=== PATIENT | female | born 1970 | race Caucasian/White ===

== ENCOUNTER → 2023-11-29 14:14 | Outpatient (REF) | payer OTHER, SELFPAY | LOC: HWWDC 14:14 | PROVIDERS: ATTENDING PHYSICIAN Internal Medicine | DX: Z12.31 Encounter for screening mammogram for malignant neoplasm of breast (principal) | CPT/HCPCS: 77063; 77067 ==

== ENCOUNTER → 2024-02-22 08:17 | Outpatient (REF) | payer OTHER, SELFPAY | LOC: HWRAD 08:17 | PROVIDERS: ATTENDING PHYSICIAN Internal Medicine | DX: R17 Unspecified jaundice (principal) | CPT/HCPCS: 76700 ==

== ENCOUNTER → 2024-07-08 06:28 | Day surgery (SDC) | payer OTHER, SELFPAY | LOC: GI 06:28 | PROVIDERS: ATTENDING PHYSICIAN Internal Medicine Gastroenterology | DX: Z12.11 Encounter for screening for malignant neoplasm of colon (principal); Z80.0 Family history of malignant neoplasm of digestive organs; K64.0 First degree hemorrhoids; K57.30 Diverticulosis of large intestine without perforation or abscess without bleeding; D12.2 Benign neoplasm of ascending colon | CPT/HCPCS: 45385; 88305 ==

== ENCOUNTER 2024-08-27 02:02 | Emergency (ER) | payer OTHER, SELFPAY ==
[2024-08-27 02:07] VITALS: BP 128/80
--- NOTE | 2024-08-27 03:18 | ED.GENMED ---
History of Present Illness
<JAVI Robertson - Last Filed: 08/27/24 05:08>
General
Chief Complaint: Head Injury
Source: patient
Exam Limitations: none
Time Seen by Provider: 08/27/24 02:59
Nursing documentation reviewed up to this point in time: agreed with
History of Present Illness
History of Present Illness:
Patient is a 54yo F w/ no PMH who presents to the ED w/ complaint of head injury. She reports a bump on crown of head that she noticed about 3 weeks ago. Denies any injury could have caused bump. Also report chest pain and SOB w/ any exertion x3wks.
Sxs are relived w/ rest. Also reports on/off pupil dilation and blurry vision x3wks. Pt states vision is fine right now. Reports hitting head in shower 3 days ago. States she was very sore from going to gym and legs gave out. Hit R side base of
head. Denies dizziness and LOC. States she developed a NICHOLSON the next day and nausea today. Reports pain/pressure in crown of head when laying back that prevents her from falling asleep. States crown of head is tender and her face is swelling. Also
reports on/off tinnitus and vertigo but unclear when started.
Review of Systems
<JAVI Robertson - Last Filed: 08/27/24 05:08>
Review of Systems
Constitutional: Denies fever, fatigue or chills
EENT: Denies sore throat or runny nose
Respiratory: Denies cough or trouble breathing
Cardiac: Denies chest pain or palpitations
ABD/GI: Denies abdominal pain, nausea, vomiting, diarrhea or constipated
: Denies dysuria
Musculoskeletal: Denies joint pain, muscle pain or neck pain
Neurological: Reports headache; Denies dizzy, weakness or numbness
Phy Exam
<JAVI Robertson - Last Filed: 08/27/24 05:08>
General Physical Exam
General Presentation: no apparent distress
General age: appears older than age
General Skin: warm and dry
General Habitus: normal
General Mental: alert
ENT Exam
ENT Exam: EOMI, neck supple and normocephalic
Eye Exam
Eye Exam: PERRL and EOMI (pain w/ far L, far R, and up )
Cardiovascular Exam
Cardiovascular Exam: regular rate/rhythm, no edema, no gallop and no murmur
Pulmonary Exam
Pulmonary Exam: lungs clear, no respiratory distress, no rales, no crackles, no rhonchi and no wheezing
Neurological Exam
Neurological Exam: alert, oriented x3, no motor deficits, no sensory deficits and speech normal
Course
<JAVI Robertson - Last Filed: 08/27/24 05:08>
Orders/Labs/Results
Orders:
Orders
08/27/24 03:25
CT Head W/o Iv Contrast Urgent
Comment:
Reason For Exam: head injury, headache
08/27/24 03:31
Electrocardiogram (*1) Urgent
Reason for Study: Shortness of Breath
EKG- Treatment ONCE
Vital Signs
Initial and Last Documented VS:
Initial Vital Signs
Temp Pulse Resp BP Pulse Ox
98.1 F 66 18 128/80 100
08/27/24 02:07 08/27/24 02:07 08/27/24 02:07 08/27/24 02:07 08/27/24 02:07
Last Documented Vital Signs
Temp Pulse Resp BP Pulse Ox
98.1 F 62 16 120/80 100
08/27/24 02:07 08/27/24 04:35 08/27/24 04:35 08/27/24 04:35 08/27/24 04:35
<Karin May DO - Last Filed: 08/27/24 04:13>
Orders/Labs/Results
Orders:
Orders
08/27/24 03:25
CT Head W/o Iv Contrast Urgent
Comment:
Reason For Exam: head injury, headache
08/27/24 03:31
Electrocardiogram (*1) Urgent
Reason for Study: Shortness of Breath
EKG- Treatment ONCE
Vital Signs
Initial and Last Documented VS:
Initial Vital Signs
Temp Pulse Resp BP Pulse Ox
98.1 F 66 18 128/80 100
08/27/24 02:07 08/27/24 02:07 08/27/24 02:07 08/27/24 02:07 08/27/24 02:07
Last Documented Vital Signs
Temp Pulse Resp BP Pulse Ox
98.1 F 62 16 120/80 100
08/27/24 02:07 08/27/24 04:35 08/27/24 04:35 08/27/24 04:35 08/27/24 04:35
<JAVI Robertson - Last Filed: 08/27/24 05:08>
MDM/Problems Addressed
Differential Diagnosis Includes:
tension NICHOLSON, migraine NICHOLSON, cluster NICHOLSON
<JAVI Robertson - Last Filed: 08/27/24 05:08>
*Critical Care Note
Total Time (30-74mins, 75-104mins- exclusive of procedures): Not Applicable
<Karin May DO - Last Filed: 08/27/24 04:13>
*Radiology
Radiology exam reviewed: radiology read reviewed (CT of the head is unremarkable)
*Pulse Oximetry
Patient hypoxic: no
*EKG
Interpreted by ED Provider?: Yes
Interpretation: normal
Rate: bradycardiac
Rhythm: sinus
[place]: normal axis
Interval: normal interval
QRS Pattern: normal QRS
Ischemia: no ischemia
*Cable Tower Operator Interpretation
Rate: normal
Interpretation: normal
Rhythm: sinus
ED Attending Note
<JAVI Robertson - Last Filed: 08/27/24 05:08>
-
Portions of this chart may have been created with voice recognition software.� Occasional wrong word or��sound alike� substitutions may have occurred due to the inherent limitations of voice recognition software.
<Karin May DO - Last Filed: 08/27/24 04:13>
ED Attending Note
Patient seen and examined by attending physician: Yes
I performed the substantive portion of visit, reviewed & personally made and approve the management plan that is documented in note by myself or KALANI.: Yes
ED Attending Note:
This is a 54-year-old woman with no significant past medical history who presents with complaints of intermittent headache after slipping and falling in the shower 2 days ago. Headache seems worse when she lays down accompanied with some pressure
in her face and nausea. She is also concerned with an episode of chest pain and shortness of breath 3 weeks ago. She has not had a cough. She denies congestion. Home COVID test was negative.
She underwent unremarkable screening colonoscopy 1 month ago.
Review of records reveals echocardiogram 1 year ago due to complaints of shortness of breath, chest pain and palpitations. Holter monitor showing normal sinus rhythm with rare PACs, rare PVCs.
Unremarkable cardiology evaluation January 2023.
She has also been evaluated by pulmonary due to complaints of shortness of breath. CT of the chest unremarkable save for incidental 3 mm pulmonary nodule. Patient is a lifelong non-smoker.
GENERAL: 54-year-old woman sitting upright on edge of stretcher, appears her stated age. Fully dressed as well as wearing a coat. She is bright and alert, pleasant, appears in no acute distress. Respirations are easy nonlabored.
EYE: pupils equal and reactive. anicteric. The head is normocephalic, atraumatic. No facial swelling identified.
NECK: Supple, nontender, no meningismus, no significant adenopathy. No JVD.
ENT: posterior pharynx is clear, oral mucosa is moist. TM clear b/l, nares have mildly boggy pale blue turbinates without rhinorrhea.
CARDIAC: Regular rate and rhythm. no murmur.
LUNGS: Clear breath sounds bilaterally, no acute respiratory distress, no wheezes/rales/rhonchi
ABDOMEN: Soft, nondistended, without focal tenderness, normoactive BS.
NEUROLOGICAL: Alert and oriented x3, no focal neuro deficits. Gait is leon and steady.
SKIN: Warm and dry, normal color, skin intact. No rash.
MUSCULOSKELETAL: No C/C/E. peripheral pulses are full and equal b/l. No palpable tenderness.
PSYCH: Normal and appropriate interaction.
I suspect minor closed head injury with tension headache but patient is exceedingly concerned for intracranial injury thus will check CT of the head.
Upon review of records patient has had somewhat chronic issues with intermittent chest pain, shortness of breath, palpitations. Thus far unremarkable cardiology as well as pulmonary evaluations.
Along with CT of the head will check EKG.
08/27/[address] of the head is unremarkable.
EKG is unremarkable showing sinus bradycardia, normal axis, normal intervals, no acute ST-T wave abnormalities. Similar and unchanged from previous December 2016.
Will discharge to home with recommendations for follow-up with PCP for recheck.
Recommend Tylenol versus ibuprofen as needed for headache.
Discharge Plan
Departure
Patient Disposition: Home (Routine Discharge)
Date of Disposition: 08/27/24
Time of Disposition: 04:10
Patient with high blood pressure during this ER visit?: No
Condition: Good
Discharge Problem:
Minor head injury, Acute tension-type headache
Instructions: Minor Head Injury (DC)
Referrals:
Jessica Gonzalez MD [Family Provider] - Call in 1-3 days for appt
Interventions
Interventions:
*Risk Screen - Suicide Last Done: 08/27/24 02:07
*General Assessment Last Done: 08/27/24 03:08
*Neglect/Abuse Screening Last Done: 08/27/24 02:07
ED- Fall Risk Assessment Last Done: 08/27/24 03:08
*ED COVID-19 Vaccine History Last Done: 08/27/24 03:08
*Nursing Disposition Last Done: 08/27/24 04:35
ED- Neurological Assessment Last Done: 08/27/24 03:08
ED-Skin Assessment Last Done: 08/27/24 03:08
Discharge Date and Time
Discharge Date/Time: 08/27/24 04:35
Print Language: GIBRALTARIAN
[2024-08-27 03:49] VITALS: BP 106/73
[2024-08-27 04:00] VITALS: BP 103/78
[2024-08-27 04:31] VITALS: BP 120/80
[2024-08-27 04:35] VITALS: BP 120/80
== END 2024-08-27 04:35 | disposition home or self-care (01) ==
LOC: EMR 02:02
PROVIDERS: EMERGENCY PHYSICIAN Emergency Medicine; FAMILY PHYSICIAN Internal Medicine
DX: G44.209 Tension-type headache, unspecified, not intractable (principal); S09.90XA Unspecified injury of head, initial encounter; W18.2XXA Fall in (into) shower or empty bathtub, initial encounter
CPT/HCPCS: 99284; 70450; 93005

== ENCOUNTER → 2024-12-18 11:10 | Outpatient (REF) | payer OTHER, SELFPAY | LOC: HWWDC 11:10 | PROVIDERS: ATTENDING PHYSICIAN Internal Medicine | DX: Z12.31 Encounter for screening mammogram for malignant neoplasm of breast (principal) | CPT/HCPCS: 77063; 77067 ==